=== PATIENT | male | born 1995 | race African-American/Black ===

== ENCOUNTER 2023-02-26 15:35 | Emergency (ER) | payer MEDICAID ==
[~2023-02-26] VITALS: Ht 177.8 cm; Wt 91.0 kg
[2023-02-26 15:37] VITALS: BP 140/95
== END 2023-02-26 16:05 | disposition left against medical advice (07) ==
LOC: ER 15:35
DX: R06.00 Dyspnea, unspecified (principal); R51.9 Headache, unspecified; T40.711A Poisoning by cannabis, accidental (unintentional), initial encounter; J45.909 Unspecified asthma, uncomplicated; Y92.9 Unspecified place or not applicable
CPT/HCPCS: 99283